=== PATIENT | male | born 2000 | race Caucasian/White ===

== ENCOUNTER 2023-05-03 22:27 | Emergency (ER) | payer MEDICAID ==
[~2023-05-03] VITALS: Ht 167.6 cm; Wt 72.6 kg
--- NOTE | 2023-05-03 23:29 | NUR ---
BIBFATHER FROM [employer] C/O HEADTRAUMA, PUNCHED TO POST HEAD, FAINTED. L NARE BLEEDING
[2023-05-03] MEDS ORDERED: HYDROCODONE/APAP 5/325MG TABLET ONE (23:30)
[2023-05-03] MEDS ORDERED: HYDROCODONE/APAP 5/325MG TABLET PO ONE (23:30)
--- NOTE | 2023-05-03 23:45 | NUR ---
PT TAKEN TO CT
[2023-05-04] MEDS ORDERED: AMOX-430 PO ×2 (00:40→00:53)
[2023-05-04] MEDS ORDERED: OXYC-128 PO ×2 (00:40→00:53)
[2023-05-04] MEDS ORDERED: AMOX/CLAVULANATE 875 MG TABLET PO ONE (01:00)
[2023-05-04] MEDS ORDERED: AMOX/CLAVULANATE 875 MG TABLET ONE (01:10)
--- NOTE | 2023-05-04 01:20 | NUR ---
Patient discharged to home in stable condition. Written and verbal after care instructions given. Patient verbalizes understanding of instruction.
[2023-05-04 01:21] VITALS: BP 134/81
[2023-05-04] MEDS ORDERED: HYDR-4303 PO (14:22)
[2023-05-04] MEDS ORDERED: HYDR-4209 PO (14:27)
== END 2023-05-04 01:21 | disposition home or self-care (01) ==
LOC: ER 23:29
DX: S02.2XXA Fracture of nasal bones, initial encounter for closed fracture (principal); Y04.2XXA Assault by strike against or bumped into by another person, initial encounter; Y93.66 Activity, soccer; Y92.89 Other specified places as the place of occurrence of the external cause; Y99.8 Other external cause status
CPT/HCPCS: 70450-TC; 70486-TC; 72125-TC